=== PATIENT | female | born 1935 | race Caucasian/White ===

== ENCOUNTER 2019-12-07 10:10 | Emergency (ER) | payer MEDICARE, BC ==
--- NOTE | 2019-12-07 10:40 | EDM.PDOC ---
<Noble Castellanos - Last Filed: 12/07/19 11:00> ED HPI GENERAL MEDICAL PROBLEM - General Chief Complaint: Lower Extremity Injury/Pain Stated Complaint: TWISTED LEG WHEN GETTING OUT OF CAR Time Seen by Provider: 12/07/19 10:35 Source of Information: Reports: Patient, Family (), RN, RN Notes Reviewed History Limitations: Reports: No Limitations - History of Present Illness INITIAL COMMENTS - FREE TEXT/NARRATIVE: 84 y.o F presents with L ankle pain that occurred at 1000 this AM. Patient reports that she was getting out of the car when her L leg gave out, causing the knee pain. She states that when she was at home prior to getting in the car her knee felt a little weak but didn't think anything of it. Patient denies falling, hitting head, or LOC. Patient does admit some L lateral knee pain. 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 Patient is able to put minimal weight on the L foot. She denies feeling weak, lightheaded or ill. She has not been around any sick contacts and feels generally healthy. She has not had any injuries or fractures to her left lower extremity in the past. She does not have any pain while lying the the bed. Onset: Today, Sudden Duration: Constant Location: Reports: Lower Extremity, Left Quality: Reports: Sharp Severity: Mild Improves with: Reports: Immobilization Worsens with: Reports: Movement (standing) Associated Symptoms: Denies: Confusion, Chest Pain, Cough, Fever/Chills, Headaches, Loss of Appetite, Nausea/Vomiting, Shortness of Breath, Syncope, Weakness - Related Data Allergies Allergy/AdvReac Type Severity Reaction Status Date / Time clemastine Allergy Other Verified 12/07/19 10:19 iodine Allergy Other Verified 12/07/19 10:19 Penicillins Allergy Cannot Verified 12/07/19 10:19 Remember azithromycin AdvReac Diarrhea Verified 12/07/19 10:19 doxycycline AdvReac Nausea and Verified 12/07/19 10:19 Vomiting erythromycin base AdvReac Nausea and Verified 12/07/19 10:19 Vomiting morphine AdvReac Other Verified 12/07/19 10:19 Home Meds: Home Meds Ascorbic Acid 500 mg PO DAILY 12/12/18 [History] Aspirin [Halfprin] 81 mg PO DAILY 12/12/18 [History] Calcium Carbonate/Vitamin D3 [Calcium 500 + Vit D Caplet] 1 tab PO DAILY [History] Cetirizine [ZyrTEC] 10 mg PO DAILY 12/12/18 [History] Fluticasone Propionate [Flonase Allergy Relief] 1 - 2 spray NASBOTH ASDIRECTED 12/12/18 [History] Ibuprofen [Motrin] 200 mg PO ASDIRECTED PRN 12/12/18 [History] Levothyroxine 50 mcg PO ACBREAKFAST 12/12/18 [History] Melatonin 3 mg PO BEDTIME PRN 12/12/18 [History] Montelukast [Singulair] 10 mg PO DAILY 12/12/18 [History] Multivitamin [Multiple Vitamins] 1 tab PO DAILY 12/12/18 [History] Sertraline [Zoloft] 150 mg PO DAILY 12/12/18 [History] Zolpidem [Ambien] 10 mg PO BEDTIME PRN 12/12/18 [History] atenoloL [Atenolol] 50 mg PO DAILY 12/12/18 [History] diphenhydrAMINE [Benadryl] 25 mg PO DAILY PRN 12/12/18 [History] Past Medical History HEENT History: Reports: Impaired Vision Cardiovascular History: Reports: High Cholesterol, Hypertension, Other (See Below) Other Cardiovascular History: CAROTID STENOSIS Respiratory History: Reports: Bronchitis, Recurrent Musculoskeletal History: Reports: Fibromyalgia Psychiatric History: Reports: Anxiety Endocrine/Metabolic History: Reports: Hypothyroidism - Past Surgical History GI Surgical History: Reports: Appendectomy Endocrine Surgical History: Reports: Other (See Below) Other Endocrine Surgeries/Procedures: S/P PAROTID SURGERY Musculoskeletal Surgical History: Reports: Other (See Below) Other Musculoskeletal Surgeries/Procedures:: S/P ROTATOR CUFF REPAIR Social & Family History - Tobacco Use Smoking Status *Q: Never Smoker Second Hand Smoke Exposure: No - Caffeine Use Caffeine Use: Reports: Coffee - Recreational Drug Use Recreational Drug Use: No - Living Situation & Occupation Living situation: Reports: with Spouse Review of Systems - Review of Systems Review Of Systems: See Below Constitutional: Denies: Chills, Fever, Weakness Eyes: Reports: No Symptoms Ears: Reports: No Symptoms. Denies: Dizziness, Tinnitus Nose: Reports: No Symptoms Mouth/Throat: Reports: No Symptoms Respiratory: Reports: No Symptoms. Denies: Shortness of Breath, Wheezing, Cough Cardiovascular: Denies: Chest Pain, Irregular Heart Rate, Lightheadedness, Palpitations, Syncope GI/Abdominal: Denies: Abdominal Pain, Constipation, Diarrhea, Nausea, Vomiting Genitourinary: Denies: Dysuria, Incontinence, Painful Urination Musculoskeletal: Reports: Leg Pain (left knee pain), Muscle Pain. Denies: Foot Pain, Joint Swelling Skin: Denies: Cyanosis, Bruising, Erythema, Wound Neurological: Reports: Difficulty Walking (can't stand on left leg). Denies: Confusion, Dizziness, Headache, Numbness, Syncope, Tingling Psychiatric: Denies: Confusion, Anxiety, Agitation ED EXAM, GENERAL - Physical Exam Exam: See Below Exam Limited By: No Limitations General Appearance: Alert, WD/WN, No Apparent Distress Head: Atraumatic, Normocephalic Neck: Normal Inspection, Supple, Non-Tender, Full Range of Motion Respiratory/Chest: No Respiratory Distress, Lungs Clear, Normal Breath Sounds, No Accessory Muscle Use, Chest Non-Tender Cardiovascular: Normal Peripheral Pulses, Regular Rate, Rhythm, No Edema, No Gallop, No JVD, No Murmur, No Rub Peripheral Pulses: 2+: Femoral (L), Posterior Tibial (L), Dorsalis Pedis (L) GI/Abdominal: Normal Bowel Sounds, Soft, Non-Tender, No Organomegaly, No Distention, No Abnormal Bruit, No Mass (Female) Exam: Deferred Rectal (Female) Exam: Deferred Back Exam: Normal Inspection, Full Range of Motion, NT Extremities: Normal Inspection, Normal Range of Motion, Non-Tender, No Pedal Edema, Normal Capillary Refill, Leg Pain (left knee). No: Joint Swelling Neurological: Alert, Oriented, CN II-XII Intact, Normal Cognition, Normal Reflexes, No Motor/Sensory Deficits Psychiatric: Normal Affect, Normal Mood Skin Exam: Warm, Dry, Intact, Normal Color, No Rash Lymphatic: No Adenopathy Course - Vital Signs Last Recorded V/S: Last Vital Signs Temp 98.1 F 12/07/19 10:13 Pulse 59 L 12/07/19 10:13 Resp 18 12/07/19 10:13 BP 180/58 H 12/07/19 10:13 Pulse Ox 94 L 12/07/19 10:13 - Orders/Labs/Meds Orders: Active Orders 24 hr Category Date Time Status Immobilizer [RC] ASDIRECTED Care 12/07/19 10:31 Active Knee 3V Lt [CR] Stat Exams 12/07/19 10:30 Taken Departure - Departure Time of Disposition: 11:15 Disposition: Home, Self-Care 01 Condition: Good Clinical Impression: Sprain of knee - Discharge Information *PRESCRIPTION DRUG MONITORING PROGRAM REVIEWED*: Not Applicable *COPY OF PRESCRIPTION DRUG MONITORING REPORT IN PATIENT KATELYN: Not Applicable Instructions: Knee Sprain, Adult, [id number] Forms: ED Department Discharge Additional Instructions: Utilize the knee immobilizer while awake. Only take off when showering or sleeping. Use a cane or walker for added stability. Continue to use ibuprofen and tylenol for pain as needed. Follow-up with primary care provider next week for re-evaluation of knee and possibly take off knee immobilizer. Sepsis Event Note - Evaluation Sepsis Screening Result: No Definite Risk - Focused Exam Vital Signs: Vital Signs Temp Pulse Resp BP Pulse Ox 12/07/19 10:13 98.1 F 59 L 18 180/58 H 94 L Date Exam was Performed: 12/07/19 Time Exam was Performed: 11:00 - My Orders Last 24 Hours: My Active Orders 12/07/19 10:30 Knee 3V Lt [CR] Stat 12/07/19 10:31 Immobilizer [RC] ASDIRECTED - Assessment/Plan Last 24 Hours: My Active Orders 12/07/19 10:30 Knee 3V Lt [CR] Stat 12/07/19 10:31 Immobilizer [RC] ASDIRECTED <González Stacy - Last Filed: 12/07/19 11:05> Course - Radiology Interpretation Free Text/Narrative:: XR Left Knee: no acute fracture or dislocation, see Rad. report. - Re-Assessments/Exams Free Text/Narrative Re-Assessment/Exam: 12/07/19 11:04 I personally performed or re-performed the physical examination and medical decision making. I have verified all student documentation or findings, including history, physical exam and/or medical decision making. Sepsis Event Note - Focused Exam Date Exam was Performed: 12/07/19 Time Exam was Performed: 11:04
== END 2019-12-07 11:10 | disposition home or self-care (01) ==
LOC: DL.ED 10:10
DX: S83.92XA Sprain of unspecified site of left knee, initial encounter (principal); E78.00 Pure hypercholesterolemia, unspecified; I10 Essential (primary) hypertension; E03.9 Hypothyroidism, unspecified; F41.9 Anxiety disorder, unspecified; Z88.8 Allergy status to other drugs, medicaments and biological substances; Z88.0 Allergy status to penicillin; Z88.1 Allergy status to other antibiotic agents; Z88.5 Allergy status to narcotic agent; Z79.82 Long term (current) use of aspirin; Z79.899 Other long term (current) drug therapy; Z90.49 Acquired absence of other specified parts of digestive tract; X50.9XXA Other and unspecified overexertion or strenuous movements or postures, initial encounter
CPT/HCPCS: 73562-LT; 99282; 99283-25

== ENCOUNTER 2020-09-07 08:55 | Emergency (ER) | payer MEDICARE, BC ==
--- NOTE | 2020-09-07 09:02 | EDM.PDOC ---
ED HPI GENERAL MEDICAL PROBLEM - General Chief Complaint: ENT Problem Stated Complaint: EXPOSED TO COVID, SORE THROAT, NOT FEELING WELL Time Seen by Provider: 09/07/20 09:01 Source of Information: Reports: Patient, Old Records, RN, RN Notes Reviewed History Limitations: Reports: No Limitations - History of Present Illness INITIAL COMMENTS - FREE TEXT/NARRATIVE: Pt presents to ER from home by POV with c/o sore throat and mild stomach upset. She is very anxious because her has COVID and she is home with him and has been exposed, but has not been tested herself. She states she is here to get "the test". Denies chest pain, shortness of breath, vomiting, diarrhea, fever, or headache. Onset: Today Duration: Constant Location: Reports: Abdomen, Other (Throat) Severity: Mild Improves with: Reports: None Worsens with: Reports: None Context: Reports: Sick Contact - Related Data Allergies Allergy/AdvReac Type Severity Reaction Status Date / Time clemastine Allergy Other Verified 09/07/20 09:05 iodine Allergy Other Verified 09/07/20 09:05 Penicillins Allergy Cannot Verified 09/07/20 09:05 Remember azithromycin AdvReac Diarrhea Verified 09/07/20 09:05 doxycycline AdvReac Nausea and Verified 09/07/20 09:05 Vomiting erythromycin base AdvReac Nausea and Verified 09/07/20 09:05 Vomiting morphine AdvReac Other Verified 09/07/20 09:05 Home Meds: Home Meds Ascorbic Acid 500 mg PO DAILY 12/12/18 [History] Aspirin [Halfprin] 81 mg PO DAILY 12/12/18 [History] Calcium Carbonate/Vitamin D3 [Calcium 500 + Vit D Caplet] 1 tab PO DAILY 12/12/18 [History] Cetirizine [ZyrTEC] 10 mg PO DAILY 12/12/18 [History] Fluticasone Propionate [Flonase Allergy Relief] 1 - 2 spray NASBOTH ASDIRECTED 12/12/18 [History] Ibuprofen [Motrin] 200 mg PO ASDIRECTED PRN 12/12/18 [History] Levothyroxine 50 mcg PO ACBREAKFAST 12/12/18 [History] Melatonin 3 mg PO BEDTIME PRN 12/12/18 [History] Montelukast [Singulair] 10 mg PO DAILY 12/12/18 [History] Multivitamin [Multiple Vitamins] 1 tab PO DAILY 12/12/18 [History] Sertraline [Zoloft] 150 mg PO DAILY 12/12/18 [History] Zolpidem [Ambien] 10 mg PO BEDTIME PRN 12/12/18 [History] atenoloL [Atenolol] 50 mg PO DAILY 12/12/18 [History] diphenhydrAMINE [Benadryl] 25 mg PO DAILY PRN 12/12/18 [History] Past Medical History HEENT History: Reports: Impaired Vision Cardiovascular History: Reports: High Cholesterol, Hypertension, Other (See Below) Other Cardiovascular History: CAROTID STENOSIS Respiratory History: Reports: Bronchitis, Recurrent Musculoskeletal History: Reports: Fibromyalgia Psychiatric History: Reports: Anxiety Endocrine/Metabolic History: Reports: Hypothyroidism - Past Surgical History GI Surgical History: Reports: Appendectomy Endocrine Surgical History: Reports: Other (See Below) Other Endocrine Surgeries/Procedures: S/P PAROTID SURGERY Musculoskeletal Surgical History: Reports: Other (See Below) Other Musculoskeletal Surgeries/Procedures:: S/P ROTATOR CUFF REPAIR Social & Family History - Family History Family Medical History: Noncontributory - Caffeine Use Caffeine Use: Reports: Coffee - Living Situation & Occupation Living situation: Reports: with Spouse ED ROS ENT - Review of Systems Review Of Systems: Comprehensive ROS is negative, except as noted in HPI. ED EXAM, ENT - Physical Exam Exam: See Below Exam Limited By: No Limitations General Appearance: Alert, WD/WN, No Apparent Distress, Anxious Eye Exam: Bilateral Eye: Normal Inspection Ears: Normal External Exam, Normal Canal, Hearing Grossly Normal, Normal TMs Nose: Normal Inspection, Normal Mucousa, No Blood Mouth/Throat: Normal Inspection, Normal Gums, Normal Lips, Normal Oropharynx, Normal Teeth Head: Atraumatic, Normocephalic Neck: Normal Inspection, Supple, Non-Tender, Full Range of Motion. No: Lymphadenopathy (L), Lymphadenopathy (R) Respiratory/Chest: No Respiratory Distress, Lungs Clear, Normal Breath Sounds, No Accessory Muscle Use, Chest Non-Tender Cardiovascular: Regular Rate, Rhythm, No Edema, No Murmur GI/Abdominal: Normal Bowel Sounds, Soft, Non-Tender, No Distention Back: Normal Inspection Extremities: Normal Inspection Neurological: Alert, Oriented, CN II-XII Intact, Normal Cognition, Normal Gait, No Motor/Sensory Deficits Psychiatric: Normal Affect, Anxious Skin: Warm, Dry, Intact, Normal Color, No Rash Course - Vital Signs Last Recorded V/S: Last Vital Signs Temp 97.4 F 09/07/20 09:06 Pulse 82 09/07/20 09:06 Resp 18 09/07/20 09:06 BP 173/62 H 09/07/20 09:06 Pulse Ox 96 09/07/20 09:06 - Orders/Labs/Meds Orders: Active Orders 24 hr Category Date Time Status CORONAVIRUS COVID-19 PCR PHL Stat Lab 09/07/20 09:00 Received Departure - Departure Time of Disposition: : Disposition: Home, Self-Care 01 Condition: Good Clinical Impression: Exposure to COVID-19 virus Pharyngitis Qualifiers: Pharyngitis/tonsillitis etiology: other specified organisms Qualified Code(s): J02.8 - Acute pharyngitis due to other specified organisms - Discharge Information *PRESCRIPTION DRUG MONITORING PROGRAM REVIEWED*: Not Applicable *COPY OF PRESCRIPTION DRUG MONITORING REPORT IN PATIENT KATELYN: Not Applicable Instructions: Pharyngitis, [id number], Prevent the Spread of COVID-19 if You Are Sick - CDC, COVID-19 Forms: ED Department Discharge Additional Instructions: Rx: Decadron (Dexamethasone) 4mg Rx: Clindamycin 150mg Self quarantine at home until your COVID test results are available. Sepsis Event Note (ED) - Focused Exam Vital Signs: Vital Signs Temp Pulse Resp BP Pulse Ox 09/07/20 09:06 97.4 F 82 18 173/62 H 96 - My Orders Last 24 Hours: My Active Orders 09/07/20 09:00 CORONAVIRUS COVID-19 PCR PHL Stat - Assessment/Plan Last 24 Hours: My Active Orders 09/07/20 09:00 CORONAVIRUS COVID-19 PCR PHL Stat
== END 2020-09-07 09:36 | disposition home or self-care (01) ==
LOC: DL.ED 08:55
DX: U07.1 COVID-19 (principal); J02.8 Acute pharyngitis due to other specified organisms; I10 Essential (primary) hypertension; E03.9 Hypothyroidism, unspecified; Z88.0 Allergy status to penicillin; Z88.1 Allergy status to other antibiotic agents; Z88.8 Allergy status to other drugs, medicaments and biological substances; Z88.5 Allergy status to narcotic agent; Z79.82 Long term (current) use of aspirin; Z79.899 Other long term (current) drug therapy; Z90.49 Acquired absence of other specified parts of digestive tract
CPT/HCPCS: 99283; U0002; 99282

== ENCOUNTER 2021-01-10 18:13 | Emergency (ER) | payer MEDICARE, BC ==
[2021-01-10] MEDS ORDERED: Cephalexin 500 MG Cap PO ONE ×2 (18:14→21:12)
[2021-01-10] MEDS ORDERED: Aspirin 81 MG Tab.Chew PO ONE (18:25)
[2021-01-10] MEDS ORDERED: Sodium Chloride 0.9% 10 ML Syringe FLUSH PRN (18:25)
--- NOTE | 2021-01-10 18:38 | EDM.PDOC ---
<González Stacy - Last Filed: 01/10/21 18:33> ED HPI GENERAL MEDICAL PROBLEM - General Chief Complaint: Chest Pain Stated Complaint: CHEST PAIN Time Seen by Provider: 01/10/21 18:33 Source of Information: Reports: Patient, Old Records, RN, RN Notes Reviewed History Limitations: Reports: No Limitations - History of Present Illness INITIAL COMMENTS - FREE TEXT/NARRATIVE: Pt presents to ER from home by POV with c/o chest pain. She states that about one week ago she began to feel "unwell" then developed a cough. She went to clinic and was evaluated by Dr. Prakash about 3 or 4 days ago and was diagnosed with bronchitis. She was prescribed some medicine (she does not know the name), but it has not helped. Today she felt worse and developed chest pain. She admits to generalized upper abdominal pain and minor lower abdominal cramping. She has not measured her temperature and is unsure if she has had any fevers or not. She has felt "clammy" and chilled at times. Denies sputum production, nausea, vomiting, diarrhea, constipation, or dysuria. Denies palpitation, edema, or orthopnea. Pt states she had COVID back in 2019. Onset: Gradual Duration: Constant, Getting Worse Location: Reports: Chest, Abdomen Quality: Reports: Ache, Pressure Severity: Moderate Improves with: Reports: None Worsens with: Reports: None Associated Symptoms: Reports: No Other Symptoms - Related Data Allergies Allergy/AdvReac Type Severity Reaction Status Date / Time clemastine Allergy Other Verified 01/10/21 18:38 Penicillins Allergy Cannot Verified 01/10/21 18:38 Remember iodine AdvReac Mild Other Verified 01/10/21 21:08 azithromycin AdvReac Diarrhea Verified 01/10/21 18:38 doxycycline AdvReac Nausea and Verified 01/10/21 18:38 Vomiting erythromycin base AdvReac Nausea and Verified 01/10/21 18:38 Vomiting morphine AdvReac Other Verified 01/10/21 18:38 Home Meds: Home Meds Ascorbic Acid 500 mg PO DAILY 12/12/18 [History] Aspirin [Halfprin] 81 mg PO DAILY 12/12/18 [History] Calcium Carbonate/Vitamin D3 [Calcium 500 + Vit D Caplet] 1 tab PO DAILY 12/12/18 [History] Cetirizine [ZyrTEC] 10 mg PO DAILY 12/12/18 [History] Fluticasone Propionate [Flonase Allergy Relief] 1 - 2 spray NASBOTH ASDIRECTED 12/12/18 [History] Ibuprofen [Motrin] 200 mg PO ASDIRECTED PRN 12/12/18 [History] Levothyroxine 50 mcg PO ACBREAKFAST 12/12/18 [History] Melatonin 3 mg PO BEDTIME PRN 12/12/18 [History] Montelukast [Singulair] 10 mg PO DAILY 12/12/18 [History] Multivitamin [Multiple Vitamins] 1 tab PO DAILY 12/12/18 [History] Sertraline [Zoloft] 150 mg PO DAILY 12/12/18 [History] Zolpidem [Ambien] 10 mg PO BEDTIME PRN 12/12/18 [History] atenoloL [Atenolol] 50 mg PO DAILY 12/12/18 [History] diphenhydrAMINE [Benadryl] 25 mg PO DAILY PRN 12/12/18 [History] Past Medical History HEENT History: Reports: Impaired Vision Cardiovascular History: Reports: High Cholesterol, Hypertension, Other (See Below) Other Cardiovascular History: CAROTID STENOSIS Respiratory History: Reports: Bronchitis, Recurrent Musculoskeletal History: Reports: Fibromyalgia Psychiatric History: Reports: Anxiety Endocrine/Metabolic History: Reports: Hypothyroidism - Past Surgical History GI Surgical History: Reports: Appendectomy Endocrine Surgical History: Reports: Other (See Below) Other Endocrine Surgeries/Procedures: S/P PAROTID SURGERY Musculoskeletal Surgical History: Reports: Other (See Below) Other Musculoskeletal Surgeries/Procedures:: S/P ROTATOR CUFF REPAIR Social & Family History - Family History Family Medical History: No Pertinent Family History - Caffeine Use Caffeine Use: Reports: Coffee - Living Situation & Occupation Living situation: Reports: with Spouse ED ROS GENERAL - Review of Systems Review Of Systems: Comprehensive ROS is negative, except as noted in HPI. ED EXAM, GENERAL - Physical Exam Exam: See Below Exam Limited By: No Limitations General Appearance: Alert, WD/WN, No Apparent Distress Eye Exam: Bilateral Eye: Normal Inspection Nose: Normal Inspection, Normal Mucosa, No Blood Throat/Mouth: Normal Inspection, Normal Lips, Normal Teeth, Normal Gums, Normal Oropharynx, Normal Voice, No Airway Compromise Head: Atraumatic, Normocephalic Neck: Normal Inspection, Supple, Non-Tender, Full Range of Motion Respiratory/Chest: No Respiratory Distress, Lungs Clear, No Accessory Muscle Use, Chest Non-Tender, Decreased Breath Sounds. No: Crackles, Rales, Rhonchi, Wheezing Cardiovascular: Normal Peripheral Pulses, Regular Rate, Rhythm, No Edema, No JVD GI/Abdominal: Normal Bowel Sounds, Soft, No Organomegaly, No Distention, Tender (Generalized mild upper abdominal tenderness to palpation). No: Guarding, Rigid, Rebound (Female) Exam: Deferred Rectal (Female) Exam: Deferred Back Exam: Normal Inspection, Full Range of Motion. No: CVA Tenderness (L), CVA Tenderness (R), Vertebral Tenderness Extremities: Normal Inspection, Normal Range of Motion, Non-Tender, Normal Capillary Refill, No Pedal Edema Neurological: Alert, Oriented, CN II-XII Intact, Normal Cognition, Normal Gait, No Motor/Sensory Deficits Psychiatric: Normal Affect, Normal Mood Skin Exam: Warm, Dry, Intact, Normal Color, No Rash #1 Interpretation EKG Date: 01/10/21 Time: 18:25 Rhythm: Other (SR) Rate (Beats/Min): 99 [place]: Normal P-Wave: Present QRS: Other (RVH) ST-T: Normal QT: Normal Comparison: NA - No Prior EKG Course - Re-Assessments/Exams Free Text/Narrative Re-Assessment/Exam: 01/10/21 19:00 Care of pt transferred to Jeronimo MEJIA at shift change. Departure - Departure Disposition: Home, Self-Care 01 Clinical Impression: Pneumonia Qualifiers: Pneumonia type: due to unspecified organism Laterality: unspecified laterality Lung location: unspecified part of lung Qualified Code(s): J18.9 - Pneumonia, unspecified organism Instructions: Community-Acquired Pneumonia, Adult Forms: ED Department Discharge Care Plan Goals: The patient and her son were advised of the examination, lab, EKG, x-ray and CT results during the visit. The patient was advised to stop taking the Bactrim. The patient was given an oral dose of Keflex while in the ED. The patient was discharged with a dose of Keflex (500 mg) to take in the morning and a script for Keflex (500 mg) #30 to take 1 by mouth 3 times per day for 10 days. If the patient has any additional symptoms or concerns, the patient should either return to the emergency department or visit her primary care facility. <Jeronimo Graham M - Last Filed: 01/10/21 21:17> Course - Vital Signs Last Recorded V/S: Last Vital Signs Temp 36.2 C 01/10/21 18:34 Pulse 101 H 01/10/21 18:34 Resp 16 01/10/21 18:34 BP 161/72 H 01/10/21 18:34 Pulse Ox 95 01/10/21 18:34 - Orders/Labs/Meds Orders: Active Orders 24 hr Category Date Time Status EKG 12 Lead [EKG Documentation Completion] [RC] STAT Care 01/10/21 18:24 Active Peripheral IV Care [RC] . DIRECTED Care 01/10/21 18:26 Active Sodium Chloride 0.9% [Saline Flush] Med 01/10/21 18:25 Active 10 ml FLUSH ASDIRECTED PRN Peripheral IV Insertion Adult [OM.PC] Stat Oth 01/10/21 18:26 Ordered Medication Orders Sodium Chloride (Sodium Chloride 0.9% 10 Ml Syringe) 10 ml FLUSH ASDIRECTED PRN PRN Reason: Keep Vein Open Labs: Laboratory Tests 01/10/21 01/10/21 01/10/21 Range/Units 18:39 18:39 18:39 WBC 9.5 (5.0-10.0) 10^3/uL RBC 3.86 L (4.2-5.4) 10^6/uL Hgb 11.9 L (12.0-16.0) g/dL Hct 35.5 L (37.0-47.0) % MCV 92.0 (80-100) fL MCH 30.8 (27.0-34.0) pg MCHC 33.5 (33.0-35.0) g/dL Plt Count 199 (150-450) 10^3/uL Neut % (Auto) 75.4 H (42.2-75.2) % Lymph % (Auto) 10.4 L (20.5-50.1) % [place] % (Auto) 11.7 H (2-8) % Eos % (Auto) 1.9 (1.0-3.0) % Baso % (Auto) 0.6 (0.0-1.0) % D-Dimer, Quantitative 690 H (0-400) ng/mL Sodium 137 (136-145) mmol/L Potassium 3.9 (3.5-5.1) mmol/L Chloride 100 (98-107) mmol/L Carbon Dioxide 22 (21-32) mmol/L Anion Gap 18.9 H (7-13) mEq/L BUN 19 H (7-18) mg/dL Creatinine 0.98 (0.55-1.02) mg/dL Est Cr Clr Drug Dosing 32.59 mL/min Estimated GFR (MDRD) 54 BUN/Creatinine Ratio 19.4 (No establ ref range) Glucose 106 H (74-99) mg/dL Calcium 8.9 (8.5-10.1) mg/dL Total Bilirubin 0.3 (0.2-1.0) mg/dL AST 41 H (15-37) U/L ALT 49 (14-59) U/L Alkaline Phosphatase 166 H (46-116) U/L Troponin I < 0.017 (0.000-0.056) ng/mL B-Natriuretic Peptide 35 (0-100) pg/ml Total Protein 7.3 (6.4-8.2) g/dL Albumin 3.3 L (3.4-5.0) g/dL Globulin 4.0 Albumin/Globulin Ratio 0.83 Amylase (25-115) U/L Lipase (73-393) U/L // Range/Units 18:39 WBC (5.0-10.0) 10^3/uL RBC (4.2-5.4) 10^6/uL Hgb (12.0-16.0) g/dL Hct (37.0-47.0) % MCV (80-100) fL MCH (27.0-34.0) pg MCHC (33.0-35.0) g/dL Plt Count (150-450) 10^3/uL Neut % (Auto) (42.2-75.2) % Lymph % (Auto) (20.5-50.1) % [place] % (Auto) (2-8) % Eos % (Auto) (1.0-3.0) % Baso % (Auto) (0.0-1.0) % D-Dimer, Quantitative (0-400) ng/mL Sodium (136-145) mmol/L Potassium (3.5-5.1) mmol/L Chloride (98-107) mmol/L Carbon Dioxide (21-32) mmol/L Anion Gap (7-13) mEq/L BUN (7-18) mg/dL Creatinine (0.55-1.02) mg/dL Est Cr Clr Drug Dosing mL/min Estimated GFR (MDRD) BUN/Creatinine Ratio (No establ ref range) Glucose (74-99) mg/dL Calcium (8.5-10.1) mg/dL Total Bilirubin (0.2-1.0) mg/dL AST (15-37) U/L ALT (14-59) U/L Alkaline Phosphatase (46-116) U/L Troponin I (0.000-0.056) ng/mL B-Natriuretic Peptide (0-100) pg/ml Total Protein (6.4-8.2) g/dL Albumin (3.4-5.0) g/dL Globulin Albumin/Globulin Ratio Amylase 101 (25-115) U/L Lipase 392 (73-393) U/L Meds: Medications Generic Name Dose Route Start Last Admin Trade Name Freq PRN Reason Stop Dose Admin Sodium Chloride 10 ml 01/10/21 18:25 Sodium Chloride 0.9% 10 Ml Syringe FLUSH ASDIRECTED PRN Keep Vein Open Discontinued Medications Generic Name Dose Route Start Last Admin Trade Name Freq PRN Reason Stop Dose Admin Aspirin 324 mg 01/10/21 18:25 01/10/21 18:41 Aspirin 81 Mg Tab.Chew PO 01/10/21 18:26 324 mg ONETIME ONE Administration Cephalexin 500 mg 01/10/21 21:12 Cephalexin 500 Mg Cap PO 01/10/21 21:13 ONETIME ONE Diphenhydramine HCl Confirm 01/10/21 20:01 Diphenhydramine 50 Mg/Ml Sdv Administered 01/10/21 20:02 Dose 50 mg .ROUTE .STK-MED ONE Iopamidol 100 ml 01/10/21 19:37 01/10/21 19:52 Iopamidol 755 Mg/Ml 100 Ml Bottle IVPUSH 01/10/21 19:38 100 ml ONETIME ONE Administration Departure - Departure Time of Disposition: 21:15 Condition: Fair Sepsis Event Note (ED) - Focused Exam Vital Signs: Vital Signs Temp Pulse Resp BP Pulse Ox 01/10/21 18:34 36.2 C 101 H 16 161/72 H 95
[2021-01-10 19:08] LABS: ANION GAP 18.9 mEq/L (7-13); CHLORIDE,CL 100 mmol/L (98-107); SODIUM,NA 137 mmol/L (136-145)
--- NOTE | 2021-01-10 19:29 | CR ---
PROCEDURE INFORMATION: Exam: XR Chest Exam date and time: 01/10/2021 6:53 PM Age: 85 years old Clinical indication: Other: Unable to retrieve previous from 2009; Additional info: Cough, chest pain TECHNIQUE: Imaging protocol: XR of the chest Views: 2 views. COMPARISON: No relevant prior studies available. FINDINGS: Lungs: Small shaggy area of increased density silhouetting left hemidiaphragm could be subsegmental atelectasis or pneumonia. Pleural spaces: Unremarkable. No pleural effusion. No pneumothorax. Heart/Mediastinum: Unremarkable. No cardiomegaly. Diaphragm: There is elevation of the left hemidiaphragm. Bones/joints: There is age-appropriate spondylosis of the spine. Right shoulder hemiarthroplasty. Degenerative joint disease left shoulder. IMPRESSION: Small shaggy area of increased density silhouetting left hemidiaphragm could be subsegmental atelectasis or pneumonia.
[2021-01-10] MEDS ORDERED: Iopamidol 755 Mg/ML 100 ML Bottle IVPUSH ONE (19:37)
[2021-01-10] MEDS ORDERED: diphenhydrAMINE 50 MG/ML SDV ONE (20:01)
--- NOTE | 2021-01-10 20:49 | CT ---
PROCEDURE INFORMATION: Exam: CT Chest With Contrast; Diagnostic Exam date and time: 01/10/2021 8:15 PM Age: 85 years old Clinical indication: Cough and other: Pe protocol; Patient HX: 20 gauge needle as big as possible; Additional info: Chest discomfort (elevated d-dimer - 690) TECHNIQUE: Imaging protocol: Diagnostic computed tomography of the chest with contrast. Radiation optimization: All CT scans at this facility use at least one of these dose optimization techniques: automated exposure control; mA and/or kV adjustment per patient size (includes targeted exams where dose is matched to clinical indication); or iterative reconstruction. Contrast material: [id number]; Contrast volume: 56 ml; Contrast route: INTRAVENOUS (IV); COMPARISON: CR Chest 2V 01/10/2021 6:53 PM FINDINGS: Lungs: Mild reticular hyperdensity at each lung apex could be interstitial fibrosis, pneumonitis, or edema. There are dependent densities at each lung base, most likely reflecting passive atelectasis. There are no suspicious pulmonary nodules or areas of lung consolidation. Mild bullous lung disease. Pleural spaces: There is no significant effusion. No pneumothorax. No mass, plaque or calcification. Heart: Normal heart size. No pericardial effusion. Aorta: No aortic aneurysm. Lymph nodes: No enlarged axillary, mediastinal, or hilar lymph nodes. Bones/joints: Right shoulder arthroplasty partially included in the field of view. Severe left shoulder degenerative joint disease.There are mild degenerative changes within the spine. Soft tissues: Unremarkable. 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 IMPRESSION: 1. No pulmonary embolism. 2. Mild reticular hyperdensity at each lung apex could be interstitial fibrosis, pneumonitis, or edema.
[2021-01-10] MEDS ORDERED: Cephalexin 500 MG Cap ONE (21:17)
== END 2021-01-10 21:31 | disposition home or self-care (01) ==
LOC: DL.ED 18:13
DX: J18.9 Pneumonia, unspecified organism (principal); R10.10 Upper abdominal pain, unspecified; I10 Essential (primary) hypertension; E03.9 Hypothyroidism, unspecified; Z88.0 Allergy status to penicillin; Z88.1 Allergy status to other antibiotic agents; Z88.5 Allergy status to narcotic agent; Z88.8 Allergy status to other drugs, medicaments and biological substances; Z79.82 Long term (current) use of aspirin; Z79.899 Other long term (current) drug therapy
CPT/HCPCS: 36415; 71046; 71260; 80053; 82150; 83690; 83880; 84484; 85025; 85379; 93005; 93010; 99283; 99285-25; A9270-GY; Q9967

== ENCOUNTER 2022-10-29 17:06 | Emergency (ER) | payer MEDICARE, BC | END 2022-10-29 17:35 | disposition home or self-care (01) | LOC: DL.ED 17:06 | DX: A46 Erysipelas (principal); E78.00 Pure hypercholesterolemia, unspecified; I10 Essential (primary) hypertension; E03.9 Hypothyroidism, unspecified; Z88.0 Allergy status to penicillin; Z88.1 Allergy status to other antibiotic agents; Z91.041 Radiographic dye allergy status; Z88.5 Allergy status to narcotic agent; Z79.82 Long term (current) use of aspirin; Z79.899 Other long term (current) drug therapy | CPT/HCPCS: 99282 ==

== ENCOUNTER 2022-11-19 18:51 | Emergency (ER) | payer MEDICARE, BC ==
[2022-11-19 20:06] LABS: ANION GAP 16.2 mEq/L (7-13)
[2022-11-19] MEDS ORDERED: diphenhydrAMINE/Zinc Acetate 2% Crm 28.4 GM Tube TOP ONE (21:27)
== END 2022-11-19 21:39 | disposition home or self-care (01) ==
LOC: DL.ED 18:51
DX: L25.9 Unspecified contact dermatitis, unspecified cause (principal); I10 Essential (primary) hypertension; E03.9 Hypothyroidism, unspecified; Z88.0 Allergy status to penicillin; Z91.041 Radiographic dye allergy status; Z88.1 Allergy status to other antibiotic agents; Z88.6 Allergy status to analgesic agent; Z79.899 Other long term (current) drug therapy; Z79.82 Long term (current) use of aspirin
CPT/HCPCS: 36415; 80053; 81001; 85025; 99283; A9270